=== PATIENT | female | born 1995 | race African-American/Black ===

== ENCOUNTER 2017-03-12 18:28 | Emergency (ER) | payer OTHER ==
[~2017-03-12] VITALS: Ht 162.6 cm; Wt 72.6 kg
[2017-03-12] MEDS ORDERED: ONDANSETRON 4 MG TAB.RAPDIS ONE (19:07)
[2017-03-12] MEDS ORDERED: HYDROCODONE/APAP 10/325MG 1 EA TABLET ONE (19:07)
--- NOTE | 2017-03-12 19:09 | NUR ---
BIB SELF C/O LOWER BACK X 2WEEKS, WORSENING X2 DAYS, NAD NOTED, VSS, SKIN WARM AND DRY, WAITING FOR MD MELGAR.
--- NOTE | 2017-03-12 19:12 | NUR ---
URINE COLLECTED, SENT TO LAB
[2017-03-12 19:27] LABS: APPEARANCE,URINE Clear (CLEAR); BILIRUBIN,URINE Negative (NEGATIVE); BLOOD, URINE Trace-intact Ery/uL (NEGATIVE); COLOR,URINE Yellow (YELLOW); KETONES,URINE Negative (NEGATIVE); LEUKOCYTE ESTERASE ,URINE Negative (NEGATIVE); NITRITE, URINE Negative (NEGATIVE); PH,URINE 7.5 (5.0-8.0); PROTEIN,URINE Negative (NEGATIVE); UGLUCOSE Negative (NEGATIVE); UROBILINOGEN,URINE 0.2 EU/dL (0.2)
[2017-03-12] MEDS ORDERED: IBUPROFEN 600 MG TABLET PO ONE ×2 (19:30→19:52)
[2017-03-12] MEDS ORDERED: ONDANSETRON 4 MG TAB.RAPDIS SL ONE (19:30)
[2017-03-12] MEDS ORDERED: HYDROCODONE/APAP 10/325MG 1 EA TABLET PO ONE (19:30)
[2017-03-12 19:34] LABS: BACTERIA,URINE Few /HPF (None Seen); RBC,URINE 2-4/HPF /HPF (0-2); SQUAMOUS EPITHELIAL CELL,UR Few /HPF (None Seen); URINE AMORPHOUS URATE Few /HPF (None Seen); WBC,URINE 0-2 /HPF (0-3)
--- NOTE | 2017-03-12 19:58 | NUR ---
Patient discharged to home in stable condition. Written and verbal after care instructions given. Patient verbalizes understanding of instruction. Ambulatory with a steady gait
[2017-03-12 19:59] VITALS: BP 144/85
== END 2017-03-12 20:02 | disposition home or self-care (01) ==
LOC: ER 18:31
DX: M54.16 Radiculopathy, lumbar region (principal); N83.202 Unspecified ovarian cyst, left side; E28.2 Polycystic ovarian syndrome
CPT/HCPCS: 76856; 81001; 84703; 99285; A4606; Z7610; 81000-TC; Q0162